=== PATIENT | female | born 1975 | race Caucasian/White ===

== ENCOUNTER 2019-05-28 00:37 | Emergency (ER) | payer BC ==
[~2019-05-28] VITALS: Ht 162.6 cm; Wt 59.0 kg
--- NOTE | 2019-05-28 06:39 | EKG ---
[facility] [address] [place] [address] Signed Atrial flutter with variable AV block Nonspecific ST and T wave abnormality Abnormal ECG No previous ECGs available Confirmed by MAICOL BEVERLY MD ([id number] on 05/28/2019 6:39:34 AM Electronically Signed By: MAICOL BEVERLY MD 05/28/19 0639 PATIENT NAME: KRISTINE HARRIS Dre Electrocardiogram DATE OF : 75 PHYSICIAN: MAICOL BEVERLY MD REPORT #: [id number] REPORT IS CONFIDENTIAL AND NOT TO BE RELEASED WITHOUT AUTHORIZATION
== END 2019-05-28 02:22 | disposition home or self-care (01) ==
LOC: ED 00:37
DX: R07.9 Chest pain, unspecified (principal)
CPT/HCPCS: 71045; 80053; 83735; 84484; 85025; 85379; 93005; 93010; 99285-25

== ENCOUNTER 2021-07-31 14:53 | Emergency (ER) | payer BC ==
[~2021-07-31] VITALS: Ht 162.6 cm; Wt 59.0 kg
[2021-07-31] MEDS ORDERED: HYDROXYZINE HCL25 MG PO (16:57)
== END 2021-07-31 17:14 | disposition home or self-care (01) ==
LOC: ED 14:53
DX: R20.2 Paresthesia of skin (principal); F41.9 Anxiety disorder, unspecified
CPT/HCPCS: 80053; 84443; 85025; 99284